=== PATIENT | male | born 2000 | race Caucasian/White ===

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

== ENCOUNTER 2020-06-11 01:50 | Emergency (ER) | payer SELFPAY ==
[~2020-06-11] VITALS: Ht 175.3 cm; Wt 106.4 kg
[2020-06-11 01:53] VITALS: BP 132/78
[2020-06-11] MEDS ORDERED: DEXAMETHASONE 4 MG TABLET ONE (02:22)
[2020-06-11] MEDS ORDERED: ACETAMINOPHEN 500 MG TABLET ONE (02:22)
[2020-06-11] MEDS ORDERED: ACETAMINOPHEN 650 MG/20.3 ML UDC PO ONE (02:30)
[2020-06-11] MEDS ORDERED: BICILLIN-LA 1,200,000 UNITS/2 ML IM ONE (02:30)
[2020-06-11] MEDS ORDERED: DEXAMETHASONE 4 MG/ML, 1ML PO ONE (02:30)
== END 2020-06-11 04:19 | disposition home or self-care (01) ==
LOC: ED 04:02
DX: J02.0 Streptococcal pharyngitis (principal); R50.9 Fever, unspecified; M79.10 Myalgia, unspecified site
CPT/HCPCS: 96372; 99283; J0561; J1100

== ENCOUNTER 2021-06-13 10:37 | Emergency (ER) | payer MEDICAID ==
[~2021-06-13] VITALS: Ht 167.6 cm; Wt 107.6 kg
--- NOTE | 2021-06-13 11:13 | NUR ---
RN AND PA ASSESSMENTS COMPLETED. AWAITING XRAY OF L SHOULDER.
--- NOTE | 2021-06-13 11:58 | NUR ---
XRAY results reviewed and chart marked for recheck.
[2021-06-13 12:44] VITALS: BP 110/70
== END 2021-06-13 12:46 | disposition home or self-care (01) ==
LOC: ED 12:40
DX: S43.402A Unspecified sprain of left shoulder joint, initial encounter (principal); W18.30XA Fall on same level, unspecified, initial encounter; Y93.89 Activity, other specified; Y92.89 Other specified places as the place of occurrence of the external cause; Y99.8 Other external cause status
CPT/HCPCS: 99283